=== PATIENT | male | born 1970 | race African-American/Black ===

== ENCOUNTER 2017-02-28 19:47 | Emergency (ER) | payer OTHER ==
[2017-02-28] MEDS: CYCLOBENZAPRINE HCL 10 MG TAB PO (21:28)
[2017-02-28] MEDS: NAPROXEN 500 MG TAB PO (21:29)
== END 2017-02-28 22:32 | disposition home or self-care (01) ==
LOC: NEPD 19:47
DX: S16.1XXA Strain of muscle, fascia and tendon at neck level, initial encounter (principal); S29.012A Strain of muscle and tendon of back wall of thorax, initial encounter; V89.2XXA Person injured in unspecified motor-vehicle accident, traffic, initial encounter; I10 Essential (primary) hypertension
CPT/HCPCS: 72040; 99284